=== PATIENT | male | born 1960 | race Caucasian/White ===

== ENCOUNTER 2017-11-08 08:49 | Day surgery (SDC) | payer OTHER ==
[~2017-11-08 08:49] MED LIST: CYAN1000 PO; GABA400 PO; IBUP800 PO; LIOT5 PO; OLAN7.5 PO; OXYACE5T PO; TAMS.4ER PO; VENL75ER PO
== END 2017-11-08 11:22 | disposition home or self-care (01) ==
LOC: ORSCMMR 08:49 → ORD 10:00 → ORSCMMR 10:00
PROVIDERS: Internal Medicine Gastroenterology
PROC: 0DBN8ZX Excision of Sigmoid Colon, Via Natural or Artificial Opening Endoscopic, Diagnostic (ICD-10-PCS; principal; 2017-11-08 10:00)
PROC: 0DBP8ZX Excision of Rectum, Via Natural or Artificial Opening Endoscopic, Diagnostic (ICD-10-PCS; principal; 2017-11-08 10:00)
DX: Z86.010 Personal history of colon polyps (principal); K63.5 Polyp of colon; K62.1 Rectal polyp; E03.9 Hypothyroidism, unspecified; J44.9 Chronic obstructive pulmonary disease, unspecified; F41.8 Other specified anxiety disorders; F17.210 Nicotine dependence, cigarettes, uncomplicated; Z79.899 Other long term (current) drug therapy; K57.30 Diverticulosis of large intestine without perforation or abscess without bleeding
CPT/HCPCS: 88305; J7120

== ENCOUNTER 2022-01-12 11:04 | Emergency (ER) | payer OTHER ==
[~2022-01-12] VITALS: Ht 175.3 cm; Wt 97.5 kg
[2022-01-12 11:42] LABS: BASOPHILS ABSOLUTE AUTO 0.05 K/mm3 (0.00-0.23); BASOPHILS PERCENT AUTO 1 % (0-2); EOSINOPHILS ABSOLUTE AUTO 0.06 K/mm3 (0.00-0.68); EOSINOPHILS PERCENT AUTO 1 % (0-6); Hematocrit 50.4 % (37.0-53.0); Hemoglobin 18.2 g/dL (13.5-17.5); IMMATURE GRAN ABSOLUTE AUTO 0.02 K/mm3 (0.00-0.10); IMMATURE GRAN PERCENT AUTO 0 % (0-1); LYMPHOCYTES ABSOLUTE AUTO 1.89 K/mm3 (0.84-5.20); LYMPHOCYTES PERCENT AUTO 29 % (21-46); MONOCYTES ABSOLUTE AUTO 0.62 K/mm3 (0.16-1.47); MONOCYTES PERCENT AUTO 9 % (4-13); Mean Corpuscular HGB Conc 36.1 g/dL (31.5-36.5); Mean Corpuscular Volume 92 fL (80-100); Mean Platelet Volume 8.8 fL (9.1-12.4); NEUTROPHILS ABSOLUTE AUTO 3.97 K/mm3 (1.96-9.15); NEUTROPHILS PERCENT AUTO 60 % (41-73); Platelet Count 183 K/mm3 (150-400); RDW Coefficient Variation 12.5 % (11.7-14.2); RDW Standard Deviation 42.5 fL (35.1-46.3); Red Blood Cell Count 5.51 M/mm3 (4.30-5.90); White Blood Cell Count 6.61 K/mm3 (4.00-11.30)
[2022-01-12 12:02] LABS: Albumin, Blood 3.8 g/dL (3.4-5.0); Bilirubin, Total 0.5 mg/dL (0.1-1.0); Bun/Creatinine Ratio 9.1 (12.0-20.0); Calcium, Blood 9.3 mg/dL (8.5-10.1); Creatinine, Blood 1.1 mg/dL (0.60-1.20); Potassium, Blood 3.6 mmol/L (3.5-5.5); Total Protein, Blood 7.8 g/dL (6.4-8.2)
[2022-01-12 12:19] LABS: Source, Urine Clean Catch
[2022-01-12 12:26] LABS: Appearance, Urine Clear (Clear); Bilirubin, Urine Neg (Neg); Blood, Urine 2+ (Neg); Color, Urine Yellow (P-Yellow); Glucose Qualitative, Urine Neg (Neg); Ketones, Urine Neg (Neg); Leukocyte Esterase, Urine Neg (Neg); Nitrite, Urine Neg (Neg); Protein, Urine 1+ (Neg); Specific Gravity, Urine 1.005 (1.003-1.022); Urobilinogen, Urine NORM (Normal)
[2022-01-12 12:40] LABS: Bacteria Rare /hpf; Squamous Epithelial Cells Rare /hpf (Few); White Blood Cells, Urine 0-2 /hpf (0-5)
[2022-01-12] MEDS ORDERED: LOSA25 PO (14:21)
[2022-01-12] MEDS ORDERED: ESCI10 PO (14:21)
== END 2022-01-12 14:39 | disposition home or self-care (01) ==
LOC: ER 11:04
PROVIDERS: Physician Assistant
DX: R19.7 Diarrhea, unspecified (principal); F41.9 Anxiety disorder, unspecified; F17.210 Nicotine dependence, cigarettes, uncomplicated; Z79.899 Other long term (current) drug therapy
CPT/HCPCS: 36415; 80053; 81001; 82550; 82947; 83690; 84443; 84484; 85025

== ENCOUNTER 2022-01-20 12:55 | Emergency (ER) | payer OTHER ==
[~2022-01-20] VITALS: Ht 175.3 cm; Wt 95.2 kg
[~2022-01-20 12:55] MED LIST changes: +ESCI10 PO; +LOSA25 PO
[2022-01-20 13:51] LABS: BASOPHILS ABSOLUTE AUTO 0.04 K/mm3 (0.00-0.23); BASOPHILS PERCENT AUTO 1 % (0-2); EOSINOPHILS ABSOLUTE AUTO 0.05 K/mm3 (0.00-0.68); EOSINOPHILS PERCENT AUTO 1 % (0-6); Hematocrit 51.9 % (37.0-53.0); Hemoglobin 18.5 g/dL (13.5-17.5); IMMATURE GRAN ABSOLUTE AUTO 0.03 K/mm3 (0.00-0.10); IMMATURE GRAN PERCENT AUTO 0 % (0-1); LYMPHOCYTES ABSOLUTE AUTO 1.89 K/mm3 (0.84-5.20); LYMPHOCYTES PERCENT AUTO 25 % (21-46); MONOCYTES ABSOLUTE AUTO 0.71 K/mm3 (0.16-1.47); MONOCYTES PERCENT AUTO 9 % (4-13); Mean Corpuscular HGB 32.9 pg (26.0-34.0); Mean Corpuscular HGB Conc 35.6 g/dL (31.5-36.5); Mean Corpuscular Volume 92 fL (80-100); Mean Platelet Volume 8.6 fL (9.1-12.4); NEUTROPHILS ABSOLUTE AUTO 4.88 K/mm3 (1.96-9.15); NEUTROPHILS PERCENT AUTO 64 % (41-73); Platelet Count 201 K/mm3 (150-400); RDW Coefficient Variation 12.5 % (11.7-14.2); RDW Standard Deviation 42.5 fL (35.1-46.3); Red Blood Cell Count 5.62 M/mm3 (4.30-5.90)
[2022-01-20 14:17] LABS: Albumin, Blood 3.9 g/dL (3.4-5.0); Bilirubin, Total 0.6 mg/dL (0.1-1.0); Bun/Creatinine Ratio 8.2 (12.0-20.0); Calcium, Blood 9.5 mg/dL (8.5-10.1); Creatinine, Blood 1.22 mg/dL (0.60-1.20); Potassium, Blood 4.3 mmol/L (3.5-5.5); Total Protein, Blood 7.9 g/dL (6.4-8.2)
[2022-01-20 17:42] LABS: Influenza A, PCR NEGATIVE (NEGATIVE); Influenza B, PCR NEGATIVE (NEGATIVE); Resp Syncytial Virus, PCR NEGATIVE (NEGATIVE); SARS-Cov-2 (COVID-19) PCR, MMC NEGATIVE (NEGATIVE)
[2022-01-20] MEDS ORDERED: ESCI10 PO (17:45)
[2022-01-20] MEDS ORDERED: LOSA25 PO (17:45)
[2022-01-20] MEDS ORDERED: FAMO20 PO (17:46)
[2022-01-20] MEDS ORDERED: ONDA4ODT MM (17:46)
== END 2022-01-20 18:14 | disposition home or self-care (01) ==
LOC: ER 12:55
PROVIDERS: Physician Assistant; Student in an Organized Health Care Education/Training Program
DX: I10 Essential (primary) hypertension (principal); R07.9 Chest pain, unspecified; R42 Dizziness and giddiness; R19.7 Diarrhea, unspecified; E86.0 Dehydration; F17.200 Nicotine dependence, unspecified, uncomplicated; Z79.899 Other long term (current) drug therapy; Z20.822 Contact with and (suspected) exposure to COVID-19
CPT/HCPCS: 0241U; 36415; 71045; 80053; 84484; 85025; 93005; 93010; A9270; J2405; J7030

== ENCOUNTER 2022-07-14 11:19 | Inpatient (IN) | payer OTHER ==
[~2022-07-14] VITALS: Ht 175.3 cm; Wt 96.7 kg
[~2022-07-14 11:19] MED LIST changes: +FAMO20 PO; +ONDA4ODT MM
[2022-07-14 15:47] LABS: BASOPHILS ABSOLUTE AUTO 0.05 K/mm3 (0.00-0.23); BASOPHILS PERCENT AUTO 1 % (0-2); EOSINOPHILS ABSOLUTE AUTO 0.04 K/mm3 (0.00-0.68); EOSINOPHILS PERCENT AUTO 1 % (0-6); IMMATURE GRAN ABSOLUTE AUTO 0.03 K/mm3 (0.00-0.10); IMMATURE GRAN PERCENT AUTO 0 % (0-1); LYMPHOCYTES ABSOLUTE AUTO 2.02 K/mm3 (0.84-5.20); LYMPHOCYTES PERCENT AUTO 29 % (21-46); MONOCYTES ABSOLUTE AUTO 0.47 K/mm3 (0.16-1.47); MONOCYTES PERCENT AUTO 7 % (4-13); Mean Corpuscular HGB 32.4 pg (26.0-34.0); Mean Corpuscular HGB Conc 34.7 g/dL (31.5-36.5); Mean Corpuscular Volume 94 fL (80-100); Mean Platelet Volume 9.3 fL (9.1-12.4); NEUTROPHILS ABSOLUTE AUTO 4.49 K/mm3 (1.96-9.15); NEUTROPHILS PERCENT AUTO 63 % (41-73); Platelet Count 178 K/mm3 (150-400); RDW Coefficient Variation 13.4 % (11.7-14.2); RDW Standard Deviation 46.7 fL (35.1-46.3); Red Blood Cell Count 5.24 M/mm3 (4.30-5.90)
[2022-07-14 16:00] LABS: Albumin, Blood 3.6 g/dL (3.4-5.0); Albumin/Globulin Ratio 0.8 (0.8-1.8); Bilirubin, Direct 0.2 mg/dL (0.0-0.3); Bilirubin, Indirect 0.6 mg/dL (0.1-0.7); Bilirubin, Total 0.8 mg/dL (0.1-1.0); Bun/Creatinine Ratio 7.7 (12.0-20.0); Calcium, Blood 9.2 mg/dL (8.5-10.1); Creatinine, Blood 1.56 mg/dL (0.60-1.20); Globulin, Blood 4.5 g/dL (2.2-4.0); Magnesium, Blood 1.7 mg/dL (1.6-2.4); Potassium, Blood 4.2 mmol/L (3.5-5.5); Total Protein, Blood 8.1 g/dL (6.4-8.2)
[2022-07-14 16:41] LABS: Base Excess Venous 0.5 mmol/L; PCO2 Venous 43.7 mmHg (38-42); pH Blood Venous 7.38 (7.34-7.37)
[2022-07-14 17:29] LABS: Influenza A, PCR NEGATIVE (NEGATIVE); Influenza B, PCR NEGATIVE (NEGATIVE); Resp Syncytial Virus, PCR NEGATIVE (NEGATIVE); SARS-Cov-2 (COVID-19) PCR, MMC NEGATIVE (NEGATIVE)
[2022-07-14 19:01] LABS: Source, Urine Clean Catch
[2022-07-14 19:05] LABS: Bilirubin, Urine Neg (Neg); Blood, Urine 4+ (Neg); Glucose Qualitative, Urine Neg (Neg); Ketones, Urine 2+ (Neg); Leukocyte Esterase, Urine Neg (Neg); Nitrite, Urine Neg (Neg); Protein, Urine 2+ (Neg); Urobilinogen, Urine NORM (Normal)
[2022-07-14 19:17] LABS: Appearance, Urine Hazy (Clear); Color, Urine Yellow (P-Yellow)
[2022-07-14 19:19] LABS: U Amphetamine Screen Not Detected; U Barbituate Screen Not Detected; U Benzodiazapine Screen Not Detected; U Buprenorphine Screen Not Detected; U Cannabinoids Screen Not Detected; U Cocaine Screen Not Detected; U Methadone Screen Not Detected; U Methamphetamine Screen Not Detected; U Opiates Screen Not Detected; U Oxycodone Screen Not Detected; U Phencyclidine Screen Not Detected; U Propoxyphene Screen Not Detected
[2022-07-14 19:20] LABS: White Blood Cells, Urine 0-2 /hpf (0-5)
[2022-07-14 19:21] LABS: Amorphous Light (0-Heavy); Bacteria Few /hpf; Granular Casts 0-2 /lpf (0); Squamous Epithelial Cells Few /hpf (Few)
[2022-07-14 22:05] LABS: International Normalized Ratio 1.1; Prothrombin Time Results 11.5 Sec (9.7-11.5)
[2022-07-14] MEDS ORDERED: Melatonin5 M1 PO (23:52)
[2022-07-14] MEDS ORDERED: METO50 PO (23:54)
[2022-07-14] MEDS ORDERED: AMITRIPTYLINE H25 MG PO (23:55)
[2022-07-14] MEDS ORDERED: Cyclobenzaprine5 MG PO (23:56)
[2022-07-14] MEDS ORDERED: LOSA50 PO (23:57)
--- NOTE | 2022-07-15 00:27 | NUR ---
TRANSFER NOTE THIS RN RECEIVED REPORT FROM TESSA CANDELARIO IN THE ED. PATIENT TRANSFERRED TO PCU 1 AT 2215. PATIENT'S TREMORS WERE NOTED WITHOUT MOVEMENT ON GURNEY. STAFF TRANSFERRED PATIENT TO NEW BED BY SLIDING DUE TO TREMORS AND FALL RISK. PATIENT ALERT AND ORIENTED FULLY AT TIME OF TRANSFER. SINUS TACH NOTED ON THE MONITOR WITH HR MAINTAINING IN THE 120'S. D5W1/2NS INFUSING PER EMAR. PATIENT MEDICATED WITH LIBRIUM AFTER ARRIVAL; SEE EMAR. PATIENT'S CIWA SCORE 8-12 AT THIS TIME. VISUAL/AUDITORY HALLUCINATIONS FLUCTUATING BUT PATIENT STATES THEY ARE NOT VIOLENT/SCARY. TREMORS IMPROVED AT TIME OF WRITING NOTE. NO N/V. NO HEADACHE. SOME ANXIETY/AGGITATION REPORTED. CALL PLACED TO MD ESCALANTE DUE TO NEED FOR NICOTINE PATCH AND INCREASED PO LIBRIUM FROM Q6HRS TO Q2HRS. PATIENT HAS BEEN CALLING STAFF APPROPRIATELY AND BEEN ABLE TO MAKE NEEDS KNOWN. MED REC DONE VIA MED CLAIM HISTORY AND LIMITED INFORMATION THAT PATIENT KNOWS ABOUT MEDICATIONS. DAUGHTER WAS UNSURE OF MEDICATIONS WELL BUT KNEW THEY NEEDED TO BE REFILLED TODAY. PATIENT APPEARS TO BE RESTING AT THIS TIME. FREQUENT CHECKS FOR SAFETY AND REASSESSMENTS OF CIWA. BED IN LOWEST POSITION, BED ALARM ON, CALL LIGHT WITHIN REACH. THIS RN WILL REVIEW CHART AND CONTINUE TO MONITOR AND PROVIDE INTERVENTIONS NEEDED/ORDERED.
[2022-07-15 04:08] LABS: BASOPHILS ABSOLUTE AUTO 0.03 K/mm3 (0.00-0.23); BASOPHILS PERCENT AUTO 1 % (0-2); EOSINOPHILS ABSOLUTE AUTO 0.02 K/mm3 (0.00-0.68); EOSINOPHILS PERCENT AUTO 0 % (0-6); Hematocrit 42.2 % (37.0-53.0); Hemoglobin 15.2 g/dL (13.5-17.5); IMMATURE GRAN ABSOLUTE AUTO 0.03 K/mm3 (0.00-0.10); IMMATURE GRAN PERCENT AUTO 1 % (0-1); LYMPHOCYTES ABSOLUTE AUTO 1.24 K/mm3 (0.84-5.20); LYMPHOCYTES PERCENT AUTO 24 % (21-46); MONOCYTES ABSOLUTE AUTO 0.31 K/mm3 (0.16-1.47); MONOCYTES PERCENT AUTO 6 % (4-13); Mean Corpuscular Volume 92 fL (80-100); Mean Platelet Volume 8.9 fL (9.1-12.4); NEUTROPHILS ABSOLUTE AUTO 3.47 K/mm3 (1.96-9.15); NEUTROPHILS PERCENT AUTO 68 % (41-73); Platelet Count 130 K/mm3 (150-400); RDW Coefficient Variation 13.4 % (11.7-14.2); RDW Standard Deviation 45.4 fL (35.1-46.3)
--- NOTE | 2022-07-15 04:18 | NUR ---
PATIENT UPDATE PATIENT WITH BP OF 183/93 AT 0325. SPOKE TO MD ESCALANTE ON THE UNIT. GAVE THIS RN VERBAL ORDER FOR 10MG HYDRALAZINE Q6HRS. MEDICATED PER EMAR. BP CAME DOWN TO 165/81 20 MINUTES AFTER ADMINISTRATION. NO FURTHER INTERVENTIONS AT THIS TIME. PATIENT WILL RECEIVE HOME BP MEDICATIONS THIS AM.
[2022-07-15 04:32] LABS: Albumin, Blood 3.1 g/dL (3.4-5.0); Albumin/Globulin Ratio 0.8 (0.8-1.8); Bilirubin, Total 1.3 mg/dL (0.1-1.0); Bun/Creatinine Ratio 8.9 (12.0-20.0); Calcium, Blood 8.6 mg/dL (8.5-10.1); Creatinine, Blood 1.35 mg/dL (0.60-1.20); Globulin, Blood 4.1 g/dL (2.2-4.0); Potassium, Blood 3.7 mmol/L (3.5-5.5); Total Protein, Blood 7.2 g/dL (6.4-8.2)
--- NOTE | 2022-07-15 05:35 | NUR ---
SHIFT SUMMARY PATIENT ALERT AND ORIENTED FULLY. LAST CIWA OF 4. MEDICATED PER EMAR FOR WITHDRAWAL. PATIENT HAS TREMORS, OCCASIONAL VISUAL HALLUCINATIONS, AND ANXIETY. PATIENT CALLING APPROPRIATELY AND USING THE URINAL IN THE BED DUE TO WEAKNESS AND TREMORS THAT HE SAYS MAKE IT DIFFICULT TO STAND. BED ALARM ON FOR SAFETY. PATIENT IS ABLE TO REPOSITION SELF IN BED INDEPENDENTLY. ATTENDS IN PLACE PER PATIENT REQUEST D/T REPORTED LOOSE BOWEL MOVEMENTS. PATIENT WITH D5W1/2NS INFUSING PER EMAR. PATIENT REMAINS NPO PER ORDER. MEDICATED PER EMAR FOR HTN. FREQUENT CHECKS FOR SAFETY AND REASSESSMENT OF CIWA'S. ST ON MONITOR WITH HR 120'S. AFEBRILE. BED IN LOWEST POSITION AND CALL LIGHT WITHIN REACH. THIS RN WILL CONTINUE TO MONITOR UNTIL SHIFT CHANGE AT 0700.
[2022-07-15 09:21] LABS: Magnesium, Blood 1.5 mg/dL (1.6-2.4); Phosphorus, Blood 1.1 mg/dL (2.5-4.9)
--- NOTE | 2022-07-15 17:39 | NUR ---
END OF SHIFT NOTE PT A&O X4. BP ELEVATED, MEDICATED W/ PRN IV HYDRALAZINE PER EMAR X1 THIS SHIFT. VSS. SPO2 > 92% ON RA. MONITOR SHOWING ST, HR 110s-140s. PT CIWA 4-6 THIS SHIFT. PT MEDICATED W/ PRN PO LIBRIUM X1 THIS SHIFT. PT 1 PERSON ASSIST W/ FWW & GB. PT EXPRESSING INTEREST IN ALCOHOL CESSATION. PT DAUGHTER AT BEDSIDE THIS SHIFT, OFFERING TO HELP PT W/ NEEDS. NO EVENTS THIS SHIFT.
--- NOTE | 2022-07-15 20:10 | NUR ---
ASSUMPTION OF CARE THIS RN ASSUMED CARE OF PATIENT AT 1900. REPORT TAKEN FROM FRANKIE CANDELARIO. CIWA OF 5 AT THIS TIME. SINUS TACH ON MONITOR WITH HR 100-110S AT THIS TIME. THIS RN NOTIFIED BY JESSE HODGES OF INCREASED QTC FROM 0.44 THIS AM TO 0.54 AT 1999. MAGNESIUM REPLACED DURING DAY SHIFT WITH ORDERS TO REDRAW 07/16 IN THE AM. BP STABLE. NO WITHDRAWAL MEDICATIONS GIVEN AT THIS TIME. AFEBRILE. SPO2 >94% ON RA. PATIENT ABLE TO MAKE NEEDS KNOWN AND IS ALERT AND ORIENTED FULLY. PATIENT IS ABLE TO REPOSITION SELF INDEPENDENTLY. BED IN LOWEST POSITION AND CALL LIGHT WITHIN REACH.
--- NOTE | 2022-07-16 04:32 | NUR ---
SHIFT SUMMARY NO ACUTE CHANGES OVERNIGHT. PATIENT WITH CIWA SCORES OF 4-5. COMPLAINTS OF MILD ANXIETY AND TREMORS. NO N/V, HEADACHE, OR HALLUCINATIONS REPORTED. PATIENT WITH STABLE VITALS. PATIENT WAS ABLE TO AMBULATE TO THE BATHROOM WITH GAITBELT AND WALKER WITH MINIMAL ASSISTANCE. PATIENT STATED THAT HE HAS "SLEPT BETTER THAN HE HAS IN YEARS" TONIGHT. PATIENT IS ALERT AND ORIENTED FULLY. MEDICATING PER EMAR. SEE ASSESSMENT. ABLE TO MAKE NEEDS KNOWN AND CALLING APPROPRIATELY. ABLE TO REPOSITION SELF IN BED. BED IN LOWEST POSITION AND CALL LIGHT WITHIN REACH. THIS RN WILL CONTINUE TO MONITOR UNTIL SHIFT CHANGE AT 0700.
[2022-07-16 05:43] LABS: Hematocrit 42.4 % (37.0-53.0); Hemoglobin 14.9 g/dL (13.5-17.5); Mean Corpuscular HGB 33.2 pg (26.0-34.0); Mean Corpuscular HGB Conc 35.1 g/dL (31.5-36.5); Mean Corpuscular Volume 94 fL (80-100); Mean Platelet Volume 9.4 fL (9.1-12.4); Platelet Count 114 K/mm3 (150-400); RDW Coefficient Variation 13.6 % (11.7-14.2); RDW Standard Deviation 46.9 fL (35.1-46.3); Red Blood Cell Count 4.49 M/mm3 (4.30-5.90); White Blood Cell Count 4.43 K/mm3 (4.00-11.30)
[2022-07-16 05:55] LABS: Albumin/Globulin Ratio 0.8 (0.8-1.8); Bilirubin, Total 1.2 mg/dL (0.1-1.0); Bun/Creatinine Ratio 9.4 (12.0-20.0); Calcium, Blood 8.8 mg/dL (8.5-10.1); Creatinine, Blood 1.38 mg/dL (0.60-1.20); Globulin, Blood 3.8 g/dL (2.2-4.0); Magnesium, Blood 1.6 mg/dL (1.6-2.4); Phosphorus, Blood 2.2 mg/dL (2.5-4.9); Potassium, Blood 3.7 mmol/L (3.5-5.5); Total Protein, Blood 6.8 g/dL (6.4-8.2)
[2022-07-16] MEDS ORDERED: MULVITA PO (11:50)
[2022-07-16] MEDS ORDERED: B-1100 M1 PO (11:50)
--- NOTE | 2022-07-16 15:56 | NUR ---
DISCHARGE HOME PT A&O X4. VSS. SPO2 > 92% ON RA. PT CIWA's STABLE. NO EVENTS. DISCHARGE INSTRUCTIONS REVIEWED W/ PT & SENT HOME W/ PT. PIV REMOVED. PT TAKEN OUT BY PCT IN WHEELCHAIR W/ BELONGINGS @ APPROX 1545.
== END 2022-07-16 15:40 | disposition home health service (06) | DRG 897 ==
LOC: ER 11:19 → PCU 21:55
PROVIDERS: Internal Medicine; Student in an Organized Health Care Education/Training Program; ADMIT Internal Medicine
DX: F10.239 Alcohol dependence with withdrawal, unspecified (principal); E87.1 Hypo-osmolality and hyponatremia; N17.9 Acute kidney failure, unspecified; F10.229 Alcohol dependence with intoxication, unspecified; E83.42 Hypomagnesemia; E83.39 Other disorders of phosphorus metabolism; D69.6 Thrombocytopenia, unspecified; F32.A Depression, unspecified; F41.9 Anxiety disorder, unspecified; K21.9 Gastro-esophageal reflux disease without esophagitis; R74.01 Elevation of levels of liver transaminase levels; E86.0 Dehydration; K70.9 Alcoholic liver disease, unspecified; F17.210 Nicotine dependence, cigarettes, uncomplicated; R26.2 Difficulty in walking, not elsewhere classified; I12.9 Hypertensive chronic kidney disease with stage 1 through stage 4 chronic kidney disease, or unspecified chronic kidney disease; N18.9 Chronic kidney disease, unspecified; Y90.6 Blood alcohol level of 120-199 mg/100 ml; M54.9 Dorsalgia, unspecified; M54.2 Cervicalgia; G89.29 Other chronic pain; E03.9 Hypothyroidism, unspecified; Z20.822 Contact with and (suspected) exposure to COVID-19; Q53.9 Undescended testicle, unspecified; Z98.890 Other specified postprocedural states; Z98.1 Arthrodesis status; Z79.899 Other long term (current) drug therapy
CPT/HCPCS: 0241U; 36415; 70450; 71046; 80048; 80053; 80076; 81001; 82803; 83690; 83735; 83880; 84100; 84145; 84484; 85025; 85027; 85610; 93005; 93010; 96365; 96366; 96367; 96375; 97110; 97116; 97162; 97166; 97530; 97535; 99285-25; A9270; C9113; G0480; J0360; J1650; J2060; J3411; J3475; J7042; J7050; J7060; J7120

== ENCOUNTER 2023-02-13 15:34 | Emergency (ER) | payer OTHER ==
[~2023-02-13] VITALS: Ht 175.3 cm; Wt 95.2 kg
[~2023-02-13 15:34] MED LIST changes: +AMITRIPTYLINE H25 MG PO; +B-1100 M1 PO; +CHLO25 PO; +Cyclobenzaprine5 MG PO; +LOSA50 PO; +METO50 PO; +MULVITA PO; +Melatonin5 M1 PO
[2023-02-13 16:17] LABS: BASOPHILS ABSOLUTE AUTO 0.03 K/mm3 (0.00-0.23); BASOPHILS PERCENT AUTO 1 % (0-2); EOSINOPHILS ABSOLUTE AUTO 0.04 K/mm3 (0.00-0.68); EOSINOPHILS PERCENT AUTO 1 % (0-6); Hematocrit 43.1 % (37.0-53.0); Hemoglobin 15.3 g/dL (13.5-17.5); IMMATURE GRAN ABSOLUTE AUTO 0.02 K/mm3 (0.00-0.10); IMMATURE GRAN PERCENT AUTO 1 % (0-1); LYMPHOCYTES ABSOLUTE AUTO 1.19 K/mm3 (0.84-5.20); LYMPHOCYTES PERCENT AUTO 29 % (21-46); MONOCYTES ABSOLUTE AUTO 0.45 K/mm3 (0.16-1.47); MONOCYTES PERCENT AUTO 11 % (4-13); Mean Corpuscular HGB 33.8 pg (26.0-34.0); Mean Corpuscular HGB Conc 35.5 g/dL (31.5-36.5); Mean Corpuscular Volume 95 fL (80-100); Mean Platelet Volume 9.3 fL (9.1-12.4); NEUTROPHILS ABSOLUTE AUTO 2.38 K/mm3 (1.96-9.15); NEUTROPHILS PERCENT AUTO 58 % (41-73); Platelet Count 107 K/mm3 (150-400); RDW Coefficient Variation 13.3 % (11.7-14.2); RDW Standard Deviation 46.9 fL (35.1-46.3); Red Blood Cell Count 4.52 M/mm3 (4.30-5.90); White Blood Cell Count 4.11 K/mm3 (4.00-11.30)
[2023-02-13 16:31] LABS: Albumin, Blood 3.5 g/dL (3.4-5.0); Bilirubin, Total 1.2 mg/dL (0.1-1.0); Bun/Creatinine Ratio 9.5 (12.0-20.0); Calcium, Blood 8.9 mg/dL (8.5-10.1); Creatinine, Blood 0.94 mg/dL (0.60-1.20); Globulin, Blood 3.5 g/dL (2.2-4.0); Potassium, Blood 3.5 mmol/L (3.5-5.5)
[2023-02-13 18:45] VITALS: BP 132/102
== END 2023-02-13 18:59 | disposition home or self-care (01) ==
LOC: ER 15:34
PROVIDERS: Student in an Organized Health Care Education/Training Program
DX: R07.89 Other chest pain (principal); G89.29 Other chronic pain; M54.9 Dorsalgia, unspecified; F10.129 Alcohol abuse with intoxication, unspecified; Y90.7 Blood alcohol level of 200-239 mg/100 ml; Z79.51 Long term (current) use of inhaled steroids; Z79.899 Other long term (current) drug therapy; F17.200 Nicotine dependence, unspecified, uncomplicated
CPT/HCPCS: 71046; 80053; 83690; 83735; 84484; 85025; 93005; 93010; 96374; 99285-25; G0480; J1885; J2405

== ENCOUNTER 2023-02-15 10:37 | Emergency (ER) | payer OTHER ==
[~2023-02-15] VITALS: Ht 175.3 cm; Wt 83.9 kg
[2023-02-15 11:12] LABS: BASOPHILS ABSOLUTE AUTO 0.01 K/mm3 (0.00-0.23); BASOPHILS PERCENT AUTO 0 % (0-2); EOSINOPHILS ABSOLUTE AUTO 0.05 K/mm3 (0.00-0.68); EOSINOPHILS PERCENT AUTO 1 % (0-6); Hematocrit 43.2 % (37.0-53.0); Hemoglobin 15.3 g/dL (13.5-17.5); IMMATURE GRAN ABSOLUTE AUTO 0.03 K/mm3 (0.00-0.10); IMMATURE GRAN PERCENT AUTO 1 % (0-1); LYMPHOCYTES PERCENT AUTO 24 % (21-46); MONOCYTES ABSOLUTE AUTO 0.33 K/mm3 (0.16-1.47); MONOCYTES PERCENT AUTO 9 % (4-13); Mean Corpuscular HGB 33.7 pg (26.0-34.0); Mean Corpuscular HGB Conc 35.4 g/dL (31.5-36.5); Mean Corpuscular Volume 95 fL (80-100); Mean Platelet Volume 9.6 fL (9.1-12.4); NEUTROPHILS ABSOLUTE AUTO 2.49 K/mm3 (1.96-9.15); NEUTROPHILS PERCENT AUTO 65 % (41-73); Platelet Count 99 K/mm3 (150-400); RDW Coefficient Variation 13.2 % (11.7-14.2); RDW Standard Deviation 46.5 fL (35.1-46.3); Red Blood Cell Count 4.54 M/mm3 (4.30-5.90); White Blood Cell Count 3.81 K/mm3 (4.00-11.30)
[2023-02-15 11:29] LABS: Albumin, Blood 3.5 g/dL (3.4-5.0); Albumin/Globulin Ratio 0.9 (0.8-1.8); Bilirubin, Total 1.6 mg/dL (0.1-1.0); Bun/Creatinine Ratio 11.8 (12.0-20.0); Calcium, Blood 9.5 mg/dL (8.5-10.1); Creatinine, Blood 1.02 mg/dL (0.60-1.20); Globulin, Blood 3.9 g/dL (2.2-4.0); Potassium, Blood 3.8 mmol/L (3.5-5.5); Total Protein, Blood 7.4 g/dL (6.4-8.2)
[2023-02-15 11:30] VITALS: BP 155/108
[2023-02-15 11:37] LABS: Magnesium, Blood 1.3 mg/dL (1.6-2.4); Phosphorus, Blood 2.5 mg/dL (2.5-4.9)
== END 2023-02-15 13:04 | disposition home or self-care (01) ==
LOC: ER 10:37
PROVIDERS: Emergency Medicine; Physician Assistant
DX: F10.282 Alcohol dependence with alcohol-induced sleep disorder (principal); G47.00 Insomnia, unspecified; F17.200 Nicotine dependence, unspecified, uncomplicated; M54.2 Cervicalgia; G89.29 Other chronic pain; M54.9 Dorsalgia, unspecified; Z79.899 Other long term (current) drug therapy; F32.A Depression, unspecified
CPT/HCPCS: 80053; 83690; 83735; 84100; 85025; 96360; 99283-25; J7030

== ENCOUNTER 2023-02-18 12:28 | Inpatient (IN) | payer OTHER ==
[~2023-02-18] VITALS: Ht 175.3 cm; Wt 83.9 kg
[2023-02-18 13:24] LABS: BASOPHILS ABSOLUTE AUTO 0.03 K/mm3 (0.00-0.23); BASOPHILS PERCENT AUTO 1 % (0-2); EOSINOPHILS ABSOLUTE AUTO 0.05 K/mm3 (0.00-0.68); EOSINOPHILS PERCENT AUTO 1 % (0-6); Hemoglobin 12.7 g/dL (13.5-17.5); IMMATURE GRAN ABSOLUTE AUTO 0.02 K/mm3 (0.00-0.10); IMMATURE GRAN PERCENT AUTO 1 % (0-1); LYMPHOCYTES ABSOLUTE AUTO 0.67 K/mm3 (0.84-5.20); LYMPHOCYTES PERCENT AUTO 19 % (21-46); MONOCYTES PERCENT AUTO 11 % (4-13); Mean Corpuscular HGB 34.2 pg (26.0-34.0); Mean Corpuscular HGB Conc 35.3 g/dL (31.5-36.5); Mean Corpuscular Volume 97 fL (80-100); Mean Platelet Volume 9.8 fL (9.1-12.4); NEUTROPHILS ABSOLUTE AUTO 2.43 K/mm3 (1.96-9.15); NEUTROPHILS PERCENT AUTO 68 % (41-73); Platelet Count 103 K/mm3 (150-400); RDW Coefficient Variation 13.1 % (11.7-14.2); Red Blood Cell Count 3.71 M/mm3 (4.30-5.90)
[2023-02-18 13:49] LABS: Albumin, Blood 2.6 g/dL (3.4-5.0); Albumin/Globulin Ratio 0.9 (0.8-1.8); Bilirubin, Total 1.2 mg/dL (0.1-1.0); Bun/Creatinine Ratio 13.4 (12.0-20.0); Calcium, Blood 9.6 mg/dL (8.5-10.1); Creatinine, Blood 1.42 mg/dL (0.60-1.20); Potassium, Blood 3.5 mmol/L (3.5-5.5); Total Protein, Blood 5.6 g/dL (6.4-8.2)
[2023-02-18 13:55] LABS: Magnesium, Blood 1.5 mg/dL (1.6-2.4); Phosphorus, Blood 2.3 mg/dL (2.5-4.9)
[2023-02-18 21:36] LABS: Hematocrit 40.1 % (37.0-53.0)
[2023-02-18 22:36] VITALS: BP 114/65
[2023-02-18 23:34] VITALS: BP 152/93
[2023-02-19 02:49] LABS: Hematocrit 36.5 % (37.0-53.0); Hemoglobin 12.8 g/dL (13.5-17.5)
[2023-02-19 03:15] LABS: International Normalized Ratio 1.04; Prothrombin Time Results 10.9 Sec (9.7-11.5)
--- NOTE | 2023-02-19 03:23 | NUR ---
SHIFT SUMMARY PT ER ADMIT THIS SHIFT FOR GI BLEED, PT REPORTS BEING TREATED AT [facility] FOR ETOH ABUSE AND THAT IS WHERE HE SUSTAINED THE FALL. PT HAS RESTED IN BED SINCE ARRIVING TO UNIT. PT HYPOTENSIVE IN ER BUT BP IS NOW STABLE. PT WAS ON 2L O2 UPON ARRIVAL BUT IS NOW MAINTAINING SATS AT 100% ON RA. A/OX4, AND MAKES NEEDS KNOWN. CIWA'S ARE AT 0. PT DOES REPORTS SOME MILD DIZZINESS, AND D/T HX OF RECENT FALL PT IS REMINDED TO USE CALL LIGHT BEFORE GETTING OOB SO THAT STAFF CAN ASSIST HIM. PT AWAITING COBRA TRANSFER FOR GI BLEED, PT AWARE OF CURRENT PLAN OF CARE. HGB STABLE AT THIS TIME. BED IN LOWEST POSITION, CALL LIGHT WITHIN REACH. FIRE RISK ASSESSED THIS SHIFT, PT EDUCATED ON FIRE RISKS AND IGNITION SOURCES, PT DENIES HAVING IGNITION SOURCES.
[2023-02-19 03:24] LABS: Albumin, Blood 2.8 g/dL (3.4-5.0); Albumin/Globulin Ratio 0.9 (0.8-1.8); Bilirubin, Total 0.8 mg/dL (0.1-1.0); Bun/Creatinine Ratio 14.7 (12.0-20.0); Calcium, Blood 9.4 mg/dL (8.5-10.1); Creatinine, Blood 1.5 mg/dL (0.60-1.20); Potassium, Blood 3.7 mmol/L (3.5-5.5); Total Protein, Blood 5.8 g/dL (6.4-8.2)
[2023-02-19 04:02] VITALS: BP 97/57
[2023-02-19 06:51] VITALS: BP 144/70
--- NOTE | 2023-02-19 07:18 | NUR ---
Received in room report from Noc RN. Patient awake and oriented and is able to communicate his needs. He is independent in bed with positioning. I called [facility] for him and they stated they will bring his belongings over. He is on RA and sats 96%. He has 18ga IV LFA and is flushed and has NS infusing at 100 ml/hr. Patient has urinal at bedside. He is awaiting transfer to [facility] for GI. VSS See EMR.
[2023-02-19 08:50] LABS: Hematocrit 37.5 % (37.0-53.0); Hemoglobin 13.1 g/dL (13.5-17.5)
[2023-02-19 12:00] VITALS: BP 101/64
--- NOTE | 2023-02-19 13:12 | NUR ---
Patient remains independent in bed and calls when needing something. [facility] brought his belongings. He remains on RA and sats >90%. He continues with NS at 100 ml/hr and tolerating well. He tolerated am meds as well. MAEW. He continues ot wait for GI transfer. [facility] called and stated they chaparrita have room later today.
[2023-02-19 14:45] LABS: Hematocrit 33.9 % (37.0-53.0); Hemoglobin 11.9 g/dL (13.5-17.5)
[2023-02-19 16:07] VITALS: BP 94/73
--- NOTE | 2023-02-19 16:21 | NUR ---
Patient has been sleeping most of shift minimal trememors and has been alert and oriented . He is able to communicate his needs. VSS see EMR. MAEW and is independent in bed with positioning for comfort. He tolerates liquids without difficulty. No significant changes with patient. He remains on RA and sats >90%. Denies any curreny pain.
--- NOTE | 2023-02-19 17:10 | NUR ---
SHIFT SUMMARY/TRANSFER OF CARE RECEIVED REPORT FROM KENDRA Smith RN. PT ALERT AND ORIENTED X4, ABLE TO FOLLOW COMMANDS AND MAKE NEEDS KNOWN. BP AND HR STABLE, PT DENIES CP/PRESSURE, AFEBRILE, SATS >95% ON ROOM AIR. RESPIRATIONS EVEN AND UNLABORED AT REST. MILD TREMORS NOTED IN UPPER EXTREM. PT STATES LAST DRINK OF ALCOHOL 02/17/23. CIWAS ORDERED. DENIES NAUSEA/VOMITING/PAIN. PT DENIES BLOOD IN STOOL THIS SHIFT. NS GTT @100ML/HR. PLANS FOR COBRA TRANSFER THIS EVENING TO [facility] IN [place]. BED IN LOW, CALL LIGHT IN REACH, ALARM ON, WILL REPORT TO ONCOMING RN.
[2023-02-19 17:18] LABS: Hemoglobin 12.3 g/dL (13.5-17.5)
[2023-02-19 18:25] VITALS: BP 94/73
--- NOTE | 2023-02-19 18:29 | NUR ---
UPDATE: REPORT GIVEN TO RN AT [facility]. WILL CALL AND SET UP TRANSPORT.
--- NOTE | 2023-02-19 19:54 | NUR ---
Pt discharged to [facility]. Report was given to EMS transport. VSS at time of transfer. [facility] was notified of Pt departure. All belongings were taken with Pt.
== END 2023-02-19 19:33 | disposition short-term general hospital (02) | DRG 378 ==
LOC: ER 12:28 → PCU 21:18
PROVIDERS: Family Medicine; Nurse Practitioner Acute Care; Physician Assistant; ADMIT Internal Medicine
DX: K92.1 Melena (principal); D61.818 Other pancytopenia; D62 Acute posthemorrhagic anemia; N17.9 Acute kidney failure, unspecified; F10.239 Alcohol dependence with withdrawal, unspecified; I10 Essential (primary) hypertension; E03.9 Hypothyroidism, unspecified; M54.9 Dorsalgia, unspecified; G89.29 Other chronic pain; M54.2 Cervicalgia; I95.9 Hypotension, unspecified; F32.A Depression, unspecified; F17.210 Nicotine dependence, cigarettes, uncomplicated; F41.9 Anxiety disorder, unspecified; G47.00 Insomnia, unspecified; Z98.890 Other specified postprocedural states; Z79.899 Other long term (current) drug therapy; Z98.1 Arthrodesis status
CPT/HCPCS: 36415; 80053; 82271; 83735; 84100; 85014; 85018; 85025; 85610; 86850; 86900; 86901; 96365; 96375; 96376; 99285-25; A9270; C9113; J3475; J7030